=== PATIENT | female | born 1975 | race Caucasian/White ===

== ENCOUNTER 2022-07-14 15:18 | Outpatient (CLI) | payer BC, SELFPAY ==
--- NOTE | 2022-07-14 15:20 | CRLHL7_ITS ---
For Patients: As a result of the Cures Act, medical imaging exams and procedure reports are released immediately into your electronic medical record. You may view this report before your referring provider. If you have questions, please contact your health care provider. BILATERAL SCREENING MAMMOGRAM WITH COMPUTER-AIDED DETECTION AND TOMOSYNTHESIS TECHNIQUE: CC and MLO views were obtained. These mammographic images have been obtained using full-field digital technique. These mammographic images were interpreted with the benefit of computer-aided detection. Breast Tomosynthesis was used in this interpretation. COMPARISON FILM: 05/22/21 FINDINGS: The breasts are heterogeneously dense, which may obscure small masses. IMPRESSION: There is no radiographic evidence for malignancy. ASSESSMENT: BI-RADS Category 1: Negative RECOMMENDATION: Routine screening mammogram in 1 year. A lay language report of this examination will be provided to the patient. Bryan Márquez M.D. Diagnostic/Nuclear Medicine Radiologist [email or web address] HEIDI:[email or web address] Transcribed: 10:52 a.m. PT/Dictated by: Bryan Márquez MD @ 07/15/2022 8:38:00 AM (Electronically Signed)
== END 2022-07-14 15:19 | disposition home or self-care (01) ==
LOC: MAMMO 15:19
PROVIDERS: PCP Family Medicine; Visit Provider Physician Assistant
DX: Z12.31 Encounter for screening mammogram for malignant neoplasm of breast (principal); R92.2 Inconclusive mammogram; Z13.1 Encounter for screening for diabetes mellitus; Z13.6 Encounter for screening for cardiovascular disorders
CPT/HCPCS: 77063; 77067; 80061; 82947; 84443

== ENCOUNTER 2022-07-15 15:54 | Outpatient (CLI) | payer BC, SELFPAY ==
--- NOTE | 2022-07-15 16:00 | CRLHL7_ITS ---
For Patients: As a result of the Century Cures Act, medical imaging exams and procedure reports are released immediately into your electronic medical record. You may view this report before your referring provider. If you have questions, please contact your health care provider. INDICATION: menorrhagia COMPARISON: none TECHNIQUE: 2D jaffe scale and color Doppler images were acquired of the pelvis using a transabdominal and transvaginal approach. FINDINGS: Sonographic images demonstrate a normal size and smooth outer contour of the uterus. Uterus measures 8.1 cm in length by 5.8 cm in AP diameter by 6.9 cm in transverse dimension. The myometrium has a normal uniform echotexture. The endometrial lining measures 15 mm in composite thickness. Two polyps are present within the fundal endometrium measuring 2.0 x 1.0 x 1.8 cm and 1.2 x 0.6 x 0.9 cm. The right ovary measures 3.4 x 2.1 x 2.0 cm in size and the left ovary measures 3.1 x 1.1 x 1.1 cm. Small left para ovarian cyst measuring 8 millimeters. Simple right ovarian cyst measuring 2.1 cm. The ovaries demonstrate normal arterial and venous blood flow on color Doppler analysis. There are no suspicious fluid collections within the cul-de-sac. IMPRESSION: Endometrial thickness is 15 millimeters with 2 fundal endometrial polyps measuring 2 cm and 1.2 cm. Dictated by Kwan Pete MD @ 07/16/2022 9:06:22 AM (Electronically Signed)
== END 2022-07-15 15:55 | disposition home or self-care (01) ==
LOC: US 15:55
PROVIDERS: PCP Family Medicine; Visit Provider Physician Assistant
DX: N92.0 Excessive and frequent menstruation with regular cycle (principal); R93.89 Abnormal findings on diagnostic imaging of other specified body structures
CPT/HCPCS: 76830; 76856

== ENCOUNTER 2022-09-04 06:17 | Day surgery (SDC) | payer BC, SELFPAY ==
[2022-09-04] MEDS: SODIUM CHLORIDE 0.9 % (FLUSH) 10 ML SYRINGE IVF (06:40)
[2022-09-04] MEDS: LACTATED RINGERS 1000 ML 1,000 ML 100 ML IV (06:40)
[2022-09-04 06:41] LABS: Ur HCG Qualitative* Negative (Negative)
[2022-09-04 06:49] VITALS: BP 130/77; PULSE 77; RESP 18; TEMP 36.6; O2SAT 100; BMI 30.7
--- NOTE | 2022-09-04 06:54 | SUR.PREOP ---
Patient provided home covid negative results to RN.
--- NOTE | 2022-09-04 07:43 | W.PM.GYNPROC ---
Procedure Note Date Seen: 09/04/22 Procedure Details: PREOPERATIVE DIAGNOSIS: 1. Menorrhagia with anemia. 2. Endometrial polyps by ultrasound. POSTOPERATIVE DIAGNOSIS: 1. Menorrhagia with anemia. 2. Endometrial polyps by ultrasound. NAME OF PROCEDURE: 1. Hysteroscopy. 2. D and C 3. Polypectomies. 4. Mirena IUD insertion. SURGEON: Michaela. ANESTHESIA: Monitored anesthesia care and paracervical block. COMPLICATIONS: None.. ESTIMATED BLOOD LOSS: <10 mL. FINDINGS: Multiple endometrial polyps, including one large pedunculated polyp arising from the posterior fundus, and a broad-based polyp arising from the left lateral mid endometrium. The endometrial tissue in general had a polypoid appearance. PATHOLOGY SPECIMENS: 1. Endometrial polyps. 2. Endometrial curettings. PROCEDURE: After obtaining informed consent, the patient was taken to the operating room where she received monitored anesthesia care. She was prepared and draped in the normal sterile fashion, in the dorsal lithotomy position. An open-sided bivalve speculum was introduced into the vagina and the cervix visualized. The anterior lip of the cervix was grasped with a single-tooth tenaculum for traction. A paracervical block was then administered using a total of 20 mL of a 50/50 mixture of 0.25% Marcaine and 1% lidocaine plain. The uterus was gently sounded. Sound length was 10 cm. Uterus noted to be retroverted. The cervix was gently dilated to a # 6 Hegar dilator. A hysteroscope was then advanced under direct visualization through the cervix into the uterine cavity. Sterile normal saline was used as distending medium. The uterine cavity was carefully inspected with the findings noted above. Pictures were taken for documentation purposes. The TruClear morcellator was inserted through the operating channel in the hysteroscope. The morcellator was used to remove the polyps and much of the polypoid endometrial tissue in its entirety. The hysteroscope was then removed. The endometrial lining was then sharply curetted. Very little additional tissue was recovered. A gritty feel was felt throughout. The hysteroscope was removed. The Mirena IUD was loaded into the introducer, and the introducer inserted into the uterine cavity to 10 cm. The device was deployed and the IUD inserted without difficulty. The introducer was removed. The strings were trimmed to a 3 cm length. The tenaculum was removed. There was little bleeding from the tenaculum site, which was controlled with direct pressure sponge stick. All instruments were then removed. The patient tolerated the procedure well. Sponge, lap, needle, and instrument counts reported as correct x2. The patient was taken to the recovery room awake in a stable condition.
[2022-09-04] MEDS: LIDOCAINE 1% MDV 20 ML INJECTION (07:59)
[2022-09-04] MEDS: BUPIVACAINE 0.25% 30 ML INJECTION (07:59)
[2022-09-04 08:27] VITALS: BP 96/45; PULSE 77; RESP 14; TEMP 36.5; O2SAT 99
[2022-09-04 08:30] VITALS: BP 91/59; PULSE 66; RESP 14; O2SAT 98
--- NOTE | 2022-09-04 08:33 | W.ANESCHARGE ---
Anesthesia Charges Start Date/Time Anesthesia Start Date: 09/04/22 Anesthesia Start Time: 07:43 Stop Date/Time Anesthesia Stop Date: 09/04/22 Anesthesia Stop Time: 08:32 Summary Emergency: No
[2022-09-04 08:45] VITALS: BP 89/57; PULSE 57; RESP 16; O2SAT 98
--- NOTE | 2022-09-04 08:52 | W.ANESCHARGE ---
Anesthesia Charges Start Date/Time Anesthesia Start Date: 09/04/22 Anesthesia Start Time: 07:43 Stop Date/Time Anesthesia Stop Date: 09/04/22 Anesthesia Stop Time: 08:32 Summary Emergency: No
[2022-09-04 09:00] VITALS: BP 104/67; PULSE 52; RESP 16; O2SAT 100
== END 2022-09-04 09:27 | disposition home or self-care (01) ==
PROVIDERS: Anesthesiology; PCP Family Medicine; Visit Provider Obstetrics & Gynecology
PROC: 0UDB8ZZ Extraction of Endometrium, Via Natural or Artificial Opening Endoscopic (ICD-10-PCS; CPT 58558; principal; 2022-09-04 07:30)
DX: N92.0 Excessive and frequent menstruation with regular cycle (principal); N84.0 Polyp of corpus uteri; D50.0 Iron deficiency anemia secondary to blood loss (chronic)
CPT/HCPCS: 58558; 58300; 00952; 81025; 88305; J1885; J2250; J2405; J2704; J3010; J3490; J7120; J7298

== ENCOUNTER 2023-07-16 08:50 | Outpatient (CLI) | payer BC, SELFPAY | END 2023-07-16 08:51 | disposition home or self-care (01) | PROVIDERS: PCP Family Medicine; Visit Provider Physician Assistant | DX: Z13.1 Encounter for screening for diabetes mellitus (principal); Z13.220 Encounter for screening for lipoid disorders; R63.5 Abnormal weight gain | CPT/HCPCS: 80061; 82947; 84443 ==

== ENCOUNTER 2023-09-13 13:41 | Outpatient (CLI) | payer BC, SELFPAY ==
--- NOTE | 2023-09-13 13:40 | CRLHL7_ITS ---
For Patients: As a result of the Century Cures Act, medical imaging exams and procedure reports are released immediately into your electronic medical record. You may view this report before your referring provider. If you have questions, please contact your health care provider. BILATERAL SCREENING MAMMOGRAM WITH COMPUTER-AIDED DETECTION AND TOMOSYNTHESIS TECHNIQUE: CC and MLO views were obtained. These mammographic images have been obtained using full-field digital technique. These mammographic images were interpreted with the benefit of computer-aided detection. Breast Tomosynthesis was used in this interpretation. COMPARISON FILM: 07/14/22, 05/22/21. FINDINGS: There are scattered areas of fibroglandular density. IMPRESSION: There is no radiographic evidence for malignancy. ASSESSMENT: BI-RADS Category 1: Negative RECOMMENDATION: Routine screening mammogram in 1 year. A lay language report of this examination will be provided to the patient. Kwan Pete M.D. Diagnostic Radiologist [email or web address] SP/Dictated by: Kwan Pete MD @ 09/14/2023 11:21:00 AM (Electronically Signed)
== END 2023-09-13 13:42 | disposition home or self-care (01) ==
PROVIDERS: PCP Family Medicine; Visit Provider Physician Assistant
DX: Z12.31 Encounter for screening mammogram for malignant neoplasm of breast (principal)
CPT/HCPCS: 77063; 77067

== ENCOUNTER 2024-06-27 08:00 | Outpatient (CLI) | payer BC, SELFPAY ==
--- NOTE | 2024-06-27 09:28 | W.ANESCHARGE ---
Anesthesia Charges Start Date/Time Anesthesia Start Date: 06/27/24 Anesthesia Start Time: 08:54 Stop Date/Time Anesthesia Stop Date: 06/27/24 Anesthesia Stop Time: 09:25
== END 2024-06-27 08:01 | disposition home or self-care (01) ==
LOC: OP CLINIC 08:00
PROVIDERS: PCP Family Medicine; Visit Provider Surgery
DX: Z12.11 Encounter for screening for malignant neoplasm of colon (principal); D12.0 Benign neoplasm of cecum; D12.2 Benign neoplasm of ascending colon; D12.3 Benign neoplasm of transverse colon; D12.5 Benign neoplasm of sigmoid colon
CPT/HCPCS: 00811; 45385; 88305; J2704

== ENCOUNTER 2024-09-18 10:07 | Outpatient (CLI) | payer BC, SELFPAY ==
--- NOTE | 2024-09-18 10:15 | CRLHL7_ITS ---
For Patients: As a result of the Century Cures Act, medical imaging exams and procedure reports are released immediately into your electronic medical record. You may view this report before your referring provider. If you have questions, please contact your health care provider. BILATERAL SCREENING MAMMOGRAM WITH COMPUTER-AIDED DETECTION AND TOMOSYNTHESIS TECHNIQUE: CC and MLO views were obtained. These mammographic images have been obtained using full-field digital technique. These mammographic images were interpreted with the benefit of computer-aided detection. Breast Tomosynthesis was used in this interpretation. COMPARISON FILM: 09/13/23, 07/14/22, 06/01/21. FINDINGS: There are scattered areas of fibroglandular density. IMPRESSION: There is no radiographic evidence for malignancy. ASSESSMENT: BI-RADS Category 1: Negative RECOMMENDATION: Routine screening mammogram in 1 year. A lay language report of this examination will be provided to the patient. Kwan Pete M.D. Diagnostic Radiologist [email or web address] SP/Dictated by: Kwan Pete MD @ 09/18/2024 11:00:00 AM (Electronically Signed)
== END 2024-09-18 10:08 | disposition home or self-care (01) ==
LOC: MAMMO 10:08
PROVIDERS: PCP Family Medicine; Visit Provider Physician Assistant
DX: Z12.31 Encounter for screening mammogram for malignant neoplasm of breast (principal)
CPT/HCPCS: 77063; 77067

== ENCOUNTER 2025-06-26 13:46 | Outpatient (CLI) | payer BC, SELFPAY ==
[2025-06-28 21:56] LABS: HPV Source Cervical
[2025-07-02 16:03] LABS: Pap Test Digital Imaging Done
== END 2025-06-26 13:47 | disposition home or self-care (01) ==
PROVIDERS: PCP Family Medicine; Visit Provider Physician Assistant
DX: Z12.4 Encounter for screening for malignant neoplasm of cervix (principal); Z13.9 Encounter for screening, unspecified
CPT/HCPCS: 80061; 84443; 87624; 87625; 88141; 88142; 88175

== ENCOUNTER 2025-07-31 11:00 | Outpatient (CLI) | payer BC, SELFPAY ==
--- NOTE | 2025-07-31 12:56 | P.ANES_ITS ---
Anesthesia Charges Start Date/Time Anesthesia Start Date: 07/31/25 Anesthesia Start Time: 12:15 Stop Date/Time Anesthesia Stop Date: 07/31/25 Anesthesia Stop Time: 12:49 Coding CPT Codes CPT Codes: DEO LWR INTST NDSC NOS - 02183 ([id number]) P2 - PATIENT W/MILD SYST DISEASE, QK - DUMPER BULK SYSTEM 2-4 CNCRNT ANES PROC, QX - REAL ESTATE INTERNSHIP SVC W/ MD MED DIRECTION
--- NOTE | 2025-07-31 12:56 | W.ANESCHARGE ---
Anesthesia Charges Start Date/Time Anesthesia Start Date: 07/31/25 Anesthesia Start Time: 12:15 Stop Date/Time Anesthesia Stop Date: 07/31/25 Anesthesia Stop Time: 12:49 Coding CPT Codes CPT Codes: DEO LWR INTST NDSC NOS - 98005 ([id number]) P2 - PATIENT W/MILD SYST DISEASE, QK - CENTRAL LAB TECHNICIAN 2-4 CNCRNT ANES PROC, QX - REO ASSET MANAGER SVC W/ MD MED DIRECTION
--- NOTE | 2025-07-31 13:09 | P.ANES_ITS ---
Anesthesia Charges Start Date/Time Anesthesia Start Date: 07/31/25 Anesthesia Start Time: 12:15 Stop Date/Time Anesthesia Stop Date: 07/31/25 Anesthesia Stop Time: 12:49 Coding CPT Codes CPT Codes: DEO LWR INTST NDSC NOS - [id number] ([id number]) P2 - PATIENT W/MILD SYST DISEASE, QK - GEOGRAPHIC INFORMATION SYSTEMS ENGINEER 2-4 CNCRNT ANES PROC, QX - COMBAT SYSTEMS OPERATOR [employer] SVC W/ MD MED DIRECTION
--- NOTE | 2025-07-31 13:09 | W.ANESCHARGE ---
Anesthesia Charges Start Date/Time Anesthesia Start Date: 07/31/25 Anesthesia Start Time: 12:15 Stop Date/Time Anesthesia Stop Date: 07/31/25 Anesthesia Stop Time: 12:49 Coding CPT Codes CPT Codes: DEO LWR INTST NDSC NOS - [id number] ([id number]) P2 - PATIENT W/MILD SYST DISEASE, QK - EXHAUST WORKER 2-4 CNCRNT ANES PROC, QX - LOST CHARGE CARD CLERK SVC W/ MD MED DIRECTION
== END 2025-07-31 11:01 | disposition home or self-care (01) ==
LOC: OP CLINIC 11:00
PROVIDERS: PCP Family Medicine; Visit Provider Surgery
DX: Z86.0100 Personal history of colon polyps, unspecified (principal); Z98.890 Other specified postprocedural states
CPT/HCPCS: 00811; 45380; J2704